=== PATIENT | male | born 1985 | race Caucasian/White ===

== ENCOUNTER 2016-10-11 22:35 | Observation (INO) | payer OTHER, MEDICAID ==
[2016-10-11 22:35] VITALS: BMI 44.9
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
[2016-10-12 01:02] LABS: BARBITURATES, UR NEGATIVE (NEGATIVE); BENZODIAZEPINES, UR NEGATIVE (NEGATIVE)
[2016-10-12 01:05] LABS: OPIATES, UR NEGATIVE (NEGATIVE)
[2016-10-12 01:06] LABS: PHENCYCLIDINE, UR NEGATIVE (NEGATIVE)
[2016-10-12 01:35] LABS: BASO % 0.5 % (0.0-2.0); EOS # 0.1 K/uL (0.0-0.7); EOS % 2.7 % (0.0-4.0); HEMOGLOBIN 14.9 g/dL (12.0-18.0); LYMPH # 1.3 K/uL (1.0-4.3); MEAN CELL VOLUME 81.4 fL (80.0-94.0); MEAN CORPUSCULAR HEMOGLOBIN 25.8 pg (27.0-31.0); MEAN CORPUSCULAR HGB CONC 31.8 g/dL (33.0-37.0); MEAN PLATELET VOLUME 8.4 fL (7.2-11.7); MONO # 0.3 K/uL (0.0-0.8); MONO % 6.7 % (0.0-10.0); NEUT % 63.1 % (50.0-75.0); NRBC % 0.1 % (0.0-2.0); RBC 5.76 Mil/uL (4.40-5.90); RED CELL DISTRIBUTION WIDTH 14.7 % (11.5-14.5); WHITE BLOOD COUNT 4.7 K/uL (4.8-10.8)
[2016-10-12 01:37] LABS: ALBUMIN 3.9 g/dL (3.5-5.0)
[2016-10-12 01:39] LABS: GFR AFRICAN-AMERICAN > 60; GFR NON-AFRICAN AMERICAN > 60
[2016-10-12 01:40] LABS: ALB/GLOB RATIO 1.2 (1.0-2.1); ALT/SGPT 25 U/L (21-72); AST/SGOT 21 U/L (17-59); BLOOD UREA NITROGEN 8 mg/dL (9-20)
[2016-10-12 01:45] LABS: INR 1.2
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
[2016-10-12 03:10] LABS: URINE BILIRUBIN NEGATIVE (NEGATIVE); URINE BLOOD NEGATIVE (NEGATIVE); URINE CLARITY Clear (Clear); URINE COLOR Yellow (YELLOW); URINE GLUCOSE (UA) 3+ mg/dL (Normal); URINE LEUKOCYTE ESTERASE NEG Leu/uL (Negative); URINE NITRATE NEGATIVE (NEGATIVE); URINE PROTEIN 2+ mg/dL (NEGATIVE)
[2016-10-12] MEDS ORDERED: Oxycodone/Acetaminophen 5/325 mg Tab PO STA (03:29)
[2016-10-12] MEDS ORDERED: Oxycodone/Acetaminophen 5/325 mg Tab ONE ×2 (03:34→17:12)
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
[2016-10-12] MEDS ORDERED: Potassium Chloride 20 mEq ER Tab PO STA (07:10)
[2016-10-12] MEDS ORDERED: Potassium Chloride 20 mEq ER Tab PO ONE (07:23)
[2016-10-12] MEDS ORDERED: Oxycodone/Acetaminophen 5/325 mg Tab PO PRN (07:55)
[2016-10-12] MEDS: Sodium Chloride 0.9% 1,000 ML IV SCH ×2 (09:10→19:00)
[2016-10-12] MEDS ORDERED: Sodium Chloride 0.9% 1,000 ML ONE (09:13)
[2016-10-12 12:30] LABS: HEMOGLOBIN 14.2 g/dL (12.0-18.0); MEAN CELL VOLUME 81.4 fL (80.0-94.0); MEAN CORPUSCULAR HEMOGLOBIN 26.2 pg (27.0-31.0); MEAN CORPUSCULAR HGB CONC 32.1 g/dL (33.0-37.0); MEAN PLATELET VOLUME 8.3 fL (7.2-11.7); RBC 5.45 Mil/uL (4.40-5.90); RED CELL DISTRIBUTION WIDTH 14.6 % (11.5-14.5); WHITE BLOOD COUNT 3.7 K/uL (4.8-10.8)
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
--- NOTE | 2016-10-12 17:04 | CARD ---
APPROVED REPORT EKG Measurement Heart [id number] <Conclusion> Normal sinus rhythm with sinus arrhythmia Normal ECG
[2016-10-12] MEDS ORDERED: Pneumococcal 23-Valent Vaccine IM ONE (19:47)
[2016-10-13 01:10] VITALS: O2SAT 97
[2016-10-13] MEDS: Sodium Chloride 0.9% 1,000 ML IV SCH (04:42)
[2016-10-13 08:07] LABS: HEMOGLOBIN 14.3 g/dL (12.0-18.0); MEAN CELL VOLUME 81.5 fL (80.0-94.0); MEAN CORPUSCULAR HEMOGLOBIN 26.3 pg (27.0-31.0); MEAN CORPUSCULAR HGB CONC 32.2 g/dL (33.0-37.0); MEAN PLATELET VOLUME 8.6 fL (7.2-11.7); RBC 5.43 Mil/uL (4.40-5.90); RED CELL DISTRIBUTION WIDTH 14.4 % (11.5-14.5)
[2016-10-13 08:20] LABS: ALBUMIN 3.1 g/dL (3.5-5.0)
[2016-10-13 08:22] LABS: GFR AFRICAN-AMERICAN > 60; GFR NON-AFRICAN AMERICAN > 60
[2016-10-13 08:23] LABS: ALB/GLOB RATIO 1.1 (1.0-2.1); ALT/SGPT 18 U/L (21-72); AST/SGOT 15 U/L (17-59); BLOOD UREA NITROGEN 10 mg/dL (9-20)
[2016-10-13 08:24] LABS: CALCIUM 8.5 mg/dl (8.6-10.4)
[2016-10-13 08:34] VITALS: BP 105/67; PULSE 57; RESP 18; TEMP 97.6
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
== END 2016-10-13 13:30 | disposition home or self-care (01) ==
LOC: C.ER 22:35 → C.9E 10-12 03:38 → C.6T 10-12 17:55
PROVIDERS: ADMIT Internal Medicine Pulmonary Disease; ATTEND Internal Medicine Pulmonary Disease
DX: Z04.3 Encounter for examination and observation following other accident (principal); G89.29 Other chronic pain; E66.9 Obesity, unspecified; Z79.01 Long term (current) use of anticoagulants; I82.5Z1 Chronic embolism and thrombosis of unspecified deep veins of right distal lower extremity
CPT/HCPCS: 36415; 70450; 70551; 71250; 72125; 74176; 80053; 81001; 83036; 84146; 85025; 85027; 85610; 85730; 86850; 86900; 93005; 96374; 99285; G0378; G0480; J1885; J7040

== ENCOUNTER 2017-02-23 00:02 | Emergency (ER) | payer MEDICAID, OTHER ==
[2017-02-23 00:03] VITALS: BMI 44.9
[2017-02-23 00:19] VITALS: BP 138/76; PULSE 91; RESP 16; TEMP 97.4; O2SAT 99
== END 2017-02-23 00:19 | disposition left against medical advice (07) ==
LOC: C.ER 00:02
DX: Z02.89 Encounter for other administrative examinations (principal); R52 Pain, unspecified